=== PATIENT | female | born 1940 | race Caucasian/White ===

== ENCOUNTER 2017-11-28 14:18 | Emergency (ER) | payer OTHER ==
--- NOTE | 2017-11-28 14:53 | EDPHY ---
H & P Time Seen by Provider: 11/28/17 14:41 HPI/ROS: HPI Fall at the at her. 77-year-old female by private vehicle with her and daughter. This patient was in a movie theater on Wednesday evening. She tripped and fell striking her right posterior lateral thorax on the rounded edge of a table. She presents to the emergency department with complaint of isolated pain to this area and a complaint of feeling something shifting in this area. She did not hit her head. There was no loss of consciousness. She denies any neck pain. ROS: Constitutional: No fever, no chills. No weakness. Respiratory: No cough. No shortness of breath. Cardiac: No chest pain, no palpitations. Gastrointestinal: No abdominal pain, no vomiting, no diarrhea. Genitourinary: No hematuria. No dysuria or increased frequency with urination. Musculoskeletal: No back pain. No neck pain. As above. Skin: No rashes. No lacerations or abrasions. Neurological: No headache. No focal weakness or altered sensation. Past medical history: Social history: Here with and daughter. No alcohol. Physical Exam: General Appearance: Alert, no distress. This patient is responding to questions appropriately and in full sentences. This patient appears well- hydrated and well-nourished. Head: Normocephalic atraumatic. Eyes: Pupils equal and round no pallor or injection. No lid edema, erythema or injection. Respiratory: There are no retractions, lungs are clear to auscultation with good air movement bilaterally. On inspection of the chest wall she has focal tenderness on palpation on the right side, posterior mid and lower rib cage area. There is no bony step-off or deformity on palpation of this area. No ecchymosis, swelling, erythema or edema noted. Gastrointestinal: Abdomen is soft and nontender, no masses, bowel sounds normal. No focal tenderness at McBurney's point. No He sign. Neurological: Motor sensory function is grossly intact. Cranial nerves are normal. Gait is normal. Skin: Warm and dry, no rashes. Musculoskeletal: Neck is supple and nontender. Extremities are symmetrical. All joints range without pain or impingement. Psychiatric: No agitation. No depression. Database: EKG: Imaging: Procedures: Emergency department course: Triage vital signs reviewed. The patient is moderately hypertensive. Vital signs otherwise normal. Right-sided rib series x-ray to be obtained as well as urinalysis to evaluate for hematuria. 3:00 p.m., care turned over to Dr. Ingrid Lieberman. Differential Diagnosis: The differential diagnosis on this patient includes but is not limited to chest wall contusion, rib fracture. This represents a partial list of diagnoses considered. These considerations are based on history, physical exam, past history, reassessment and diagnostic testing. (Rafael Kelley) Constitutional: Initial Vital Signs Temperature (C) 36.6 C 11/28/17 14:34 Heart Rate 99 11/28/17 14:34 Respiratory Rate 18 11/28/17 14:34 Blood Pressure 157/80 H 11/28/17 14:34 O2 Sat (%) 92 11/28/17 14:34 O2 Delivery Mode Room Air Allergies/Adverse Reactions: Cephalosporins Allergy (Verified 11/28/17 14:59) Penicillins Allergy (Verified 11/28/17 14:59) Home Medications: Medication Instructions Recorded Cetirizine 11/28/17 Citalopram 11/28/17 Eylea 11/28/17 Ezetimibe 11/28/17 Focus Macula Pro 11/28/17 Hydrocodone/APAP 5/325 [[place] 1 - 2 tab PO Q4 PRN #20 tab 11/28/17 5/325 (RX)] Losartan Potassium 11/28/17 Ranitidine HCl 11/28/17 Synthroid 11/28/17 traMADol HCL [Ultram] 50 mg PO Q6 PRN #20 tablet 11/28/17 Medical Decision Making Other Provider: I assumed care of this patient from Dr. Kelley. X-rays were pending at that time. Chest x-ray and dedicated rib views reveal a right nondisplaced rib fracture. No pneumothorax. This information is relayed to the patient, her , and her daughter. Instructions were given concerning symptomatic treatment and expected time of healing. Questions were answered. (Ingrid Lieberman) - Data Points Point of Care Test Results: Urine Dip Collection Date 11/28/17 Collection Time 15:46 Specific Hughes (1.002-1.030) 1.015 PH (5.0-7.5) 7.0 Leukocytes (Negative) 1+ Nitrites (Negative) Negative Protein (Negative) Negative Glucose (Negative) Negative Ketones (Negative) Negative Urobilnogen (0.2-1.0 EU) 0.2 Bilirubin (Negative) Negative Blood (Negative) Negative Departure - Departure Disposition: Home, Routine, Self-Care Clinical Impression: Fall, Chest wall injury, Right rib fracture Condition: Fair Instructions: Rib Fracture (ED) Additional Instructions: You have a right 10th rib fracture. There is no injury to the lung. Try to take 2 deep breaths every hour while you are awake. Use the incentive spirometer. I am providing some guidelines about taking Tylenol and ibuprofen for pain. I am writing a prescription for [place]--hydrocodone plus Tylenol. As we discussed , you need to be careful when taking this opiate pain medication. Do not take more than 3000 mg of Tylenol during his single 24 hr time period. Since each [place] contains Tylenol you need to keep track of any additional Tylenol that you take. Do not take both [place] and tramadol. I recommend that you try the [place] this week and then switch to tramadol. Use a lidocaine patch--follow the instructions on the packaging. You can buy these [id number]. Adult Pain & Fever Control: We recommend Acetaminophen (Tylenol) and Ibuprofen (Motrin,Advil) for pain and fever control. When fever is high or pain severe, both drugs can be used at the same time, but at different intervals. Please note the time differences. Your dose is: Acetaminophen [500]mg every 4 to 6 hours Ibuprofen [400]mg every [6] hours with food Note: No more than 3000mg of Acetaminophen should be taken in 24 hours (for an adult). Referrals: Sybil Rios DO [Primary Care Provider] - As per Instructions Prescriptions: Hydrocodone/APAP 5/325 [[place] 5/325 (RX)] 1 - 2 tab PO Q4 PRN #20 tab PRN Reason: pain traMADol HCL [Ultram] 50 mg PO Q6 PRN #20 tablet PRN Reason: Pain, Moderate
[2017-11-28 17:15] VITALS: BP 138/69
== END 2017-11-28 17:23 | disposition home or self-care (01) ==
LOC: CED 14:18
DX: S22.31XA Fracture of one rib, right side, initial encounter for closed fracture (principal); W01.0XXA Fall on same level from slipping, tripping and stumbling without subsequent striking against object, initial encounter; W22.03XA Walked into furniture, initial encounter; Y92.26 Movie house or cinema as the place of occurrence of the external cause
CPT/HCPCS: 71101-PO

== ENCOUNTER → 2017-12-08 | Outpatient (CLI) | payer OTHER | LOC: BMCIMAGING 10:32 | PROVIDERS: ATTEND Family Medicine | DX: Z13.820 Encounter for screening for osteoporosis (principal); M85.88 Other specified disorders of bone density and structure, other site; Z78.0 Asymptomatic menopausal state; Z87.81 Personal history of (healed) traumatic fracture; E03.9 Hypothyroidism, unspecified; Z91.81 History of falling ==

== ENCOUNTER → 2018-06-21 | Outpatient (CLI) | payer OTHER | LOC: CIMAGING 11:27 | PROVIDERS: ATTEND Family Medicine | DX: Z12.31 Encounter for screening mammogram for malignant neoplasm of breast (principal) ==